=== PATIENT | female | born 1985 | race African-American/Black ===

== ENCOUNTER 2019-04-09 15:28 | Emergency (ER) | payer SELFPAY ==
[~2019-04-09] VITALS: Ht 175.3 cm; Wt 95.0 kg
[2019-04-09] MEDS ORDERED: OMEP20CA5 PO (15:46)
[2019-04-09 18:26] VITALS: BP 145/91
== END 2019-04-09 20:10 | disposition left against medical advice (07) ==
LOC: ER 15:28
DX: R68.89 Other general symptoms and signs (principal); Z53.21 Procedure and treatment not carried out due to patient leaving prior to being seen by health care provider

== ENCOUNTER 2019-12-27 02:21 | Emergency (ER) | payer MEDICAID ==
[~2019-12-27] VITALS: Ht 175.3 cm; Wt 87.0 kg
[~2019-12-27 02:21] MED LIST: OMEP20CA14 PO
[2019-12-27 07:34] LABS: CHLORIDE 106 mEq/L (98-107)
[2019-12-27 07:35] LABS: BASOPHILS % 0.7 % (0.0-2.0); EOSINOPHILS % 1.6 % (0.0-5.0); HEMATOCRIT. 41.2 % (36.0-48.0); MEAN CORPUSCULAR VOLUME 91.4 fL (81.0-99.0); MEAN PLATELET VOLUME 9.3 fl (7.4-10.4); MONOCYTES % 8.6 % (2.0-8.0); NEUTROPHILS % 71.1 % (40.0-76.0); PLATELET 284 x1000/uL (130-400); RED BLOOD CELL COUNT 4.51 mill/uL (4.2-5.4); RED CELL DISTRIBUTION WIDTH 14.1 % (11.6-14.6)
[2019-12-27 08:00] LABS: HCG SCREEN NEGATIVE
[2019-12-27 09:22] VITALS: BP 130/81
== END 2019-12-27 09:26 | disposition home or self-care (01) ==
LOC: ER 02:21
DX: K59.00 Constipation, unspecified (principal); K42.9 Umbilical hernia without obstruction or gangrene; D25.9 Leiomyoma of uterus, unspecified; R03.0 Elevated blood-pressure reading, without diagnosis of hypertension; E11.9 Type 2 diabetes mellitus without complications
CPT/HCPCS: 36415; 74176; 80053; 82962; 84703; 85025; 99284